=== PATIENT | male | born 1995 | race Caucasian/White ===

== ENCOUNTER 2024-07-07 20:23 | Emergency (ER) | payer OTHER ==
[~2024-07-07] VITALS: Ht 182.9 cm; Wt 71.7 kg
[2024-07-07 20:34] VITALS: BP_SYST 144; PULSE 87; RESP 18; TEMP 98; O2SAT 99
[2024-07-07] MEDS ORDERED: BISA-79 PO (22:57)
[2024-07-07 23:12] VITALS: BP_SYST 134; PULSE 73; RESP 18; TEMP 98; O2SAT 96
== END 2024-07-07 23:12 | disposition home or self-care (01) ==
LOC: SED 20:23
DX: K59.00 Constipation, unspecified (principal)
CPT/HCPCS: 74018; 99283